=== PATIENT | female | born 2000 | race Caucasian/White ===

== ENCOUNTER 2022-06-06 05:43 | Inpatient (IN) | payer OTHER ==
[~2022-06-06] VITALS: Ht 165.1 cm; Wt 93.9 kg
[2022-06-06] MEDS ORDERED: METRONIDAZOLE500 MG PO (08:15)
[2022-06-06] MEDS ORDERED: TYLENOL325 MG PO (08:16)
[2022-06-06 09:03] LABS: HEMOGLOBIN 11.8 gm/dl (12.3-15.3); RED BLOOD COUNT 4.33 M/UL (4.00-5.10); WHITE BLOOD COUNT 11.4 K/UL (4.5-11.0)
[2022-06-06] MEDS ORDERED: IBU600 MG PO (15:06)
[2022-06-06] MEDS ORDERED: COLACE100 MG PO (15:06)
[2022-06-07 03:09] LABS: HEMOGLOBIN 9.8 gm/dl (12.3-15.3)
[2022-06-08] MEDS ORDERED: COLACE 100MG C100 MG PO (13:35)
[2022-06-08] MEDS ORDERED: IBUPROFEN800 MG PO (13:35)
[2022-06-08] MEDS ORDERED: HEMOCYTE324 MG PO (13:35)
== END 2022-06-08 15:37 | disposition home or self-care (01) | DRG 806 ==
LOC: OB 05:43
PROVIDERS: ADMIT Obstetrics & Gynecology
PROC: 10E0XZZ Delivery of Products of Conception, External Approach (ICD-10-PCS; principal; 2022-06-06)
PROC: 10907ZC Drainage of Amniotic Fluid, Therapeutic from Products of Conception, Via Natural or Artificial Opening (ICD-10-PCS; 2022-06-06)
PROC: 4A1HXCZ Monitoring of Products of Conception, Cardiac Rate, External Approach (ICD-10-PCS; 2022-06-06)
DX: O98.82 Other maternal infectious and parasitic diseases complicating childbirth (principal); O72.1 Other immediate postpartum hemorrhage; Z37.0 Single live birth; O48.0 Post-term pregnancy; Z3A.41 41 weeks gestation of pregnancy; Z28.310 Unvaccinated for COVID-19; Z87.891 Personal history of nicotine dependence; Z90.49 Acquired absence of other specified parts of digestive tract; Z83.3 Family history of diabetes mellitus; Z82.49 Family history of ischemic heart disease and other diseases of the circulatory system; O70.0 First degree perineal laceration during delivery
CPT/HCPCS: 36415; 81001; 82800; 85014; 85018; 85025; J2210; J2405; J2590